=== PATIENT | male | born 1975 | race Caucasian/White ===

== ENCOUNTER 2023-10-26 00:58 | Day surgery (SDC) | payer BC, SELFPAY ==
[2023-10-13 09:31] VITALS: BMI 37.8
[2023-10-26 07:38] VITALS: BP 150/100; PULSE 70; RESP 18; TEMP 36.4; O2SAT 99; BMI 37.8
[2023-10-26] MEDS: LACTATED RINGERS 1,000 ML 150 ML IV CONT (07:55)
--- NOTE | 2023-10-26 09:17 | WPDANESEPPF ---
Anes - Initial Pre Proc Eval Procedure: Operation Date: 10/26/23 09:00 Proposed Procedures p Screening Colonoscopy - Jordan Maldonado DO Date/Time: 10/26/23 09:17 Surgeon: Jordan Maldonado DO Pre Op Diagnosis: Screening for malignant neoplasm of colon Patient Data Age: 48 Gender: M Height: 1.75 m Weight: 116.2 kg Last Vital Signs Temp 97.6 F 10/26/23 07:38 Pulse 70 10/26/23 07:38 Resp 18 10/26/23 07:38 BP 150/100 H 10/26/23 07:38 Pulse Ox 99 10/26/23 07:38 O2 Del Method Room Air 10/26/23 07:38 Allergies Allergy/AdvReac Type Severity Reaction Status Date / Time vancomycin Allergy Unknown Unknown Verified 10/26/23 07:46 Home Medications Medication Instructions Recorded Confirmed Type cholecalciferol (vitamin D3) 50 50 mcg PO DAILY 09/27/23 10/26/23 History mcg (2,000 unit) capsule cyanocobalamin (vitamin B-12) 1,000 mcg PO DAILY 09/27/23 10/26/23 History 1,000 mcg capsule magnesium gluconate 27.5 mg 27.5 mg PO EVERY OTHER DAY 09/27/23 10/26/23 History magnesium (500 mg) tablet Patient hx anesthesia problems: none Family hx anesthesia problems: none Results Review: All pre-operative results and documents have been reviewed as part of the pre-operative evaluation. PMFSH Past Medical History Medical History (Updated 09/27/23 @ 10:38 by Yolanda Lemus PA-C) Anxiety disorder, unspecified Essential (primary) hypertension Fracture of left tibia Low back pain Lumbar disc disease Sleep apnea Thyroid mass Vitamin D deficiency, unspecified Surgical History Surgical History (Updated 09/27/23 @ 10:42 by Yolanda Lemus PA-C) H/O vasectomy History of back surgery L2 microdiscectomy Family History Family History Father Hypertension Acute myocardial infarction Acute alcohol abuse Grandparent Family history of lung cancer Daughter Depression Son Depression Social History Social History (Updated 09/27/23 @ 10:50 by Niharika Lagos MA) Smoking status: Never smoker Second hand tobacco smoke exposure: Yes Alcohol intake: current Drinks per week: 20 Substance use: never Substance use type: does not use Do You Feel Safe in your Home?: Yes Lack of Transportation: No Lack of Food: Never True Current Housing: I Have Housing Concerned About Future Housing: No Difficulty Paying Gas/Electric Bills: No Difficulty Paying for Meds: No Currently Unemployed: No Education: Trade/Vocational Certificate Difficulty w/ Childcare or Family Care: No Living arrangements: with family Gender identity (if verbalized by the patient): Male Spiritual care concerns: No Agree to blood products: Yes Anes - Eval Final PreProcedure Day of Procedure 10/26/23 09:17 Patient weight: obese Heart: regular rate and rhythm Lungs: clear to auscultation Airway: Mallampati scale class III Neurological: alert and oriented Last oral intake: >/= 8 hours ASA classification: III Emergent: no Anesthetic plan: proceed Anesthesia type and monitoring: general GIVS and standard monitoring Results Review: All pre-operative results and documents have been reviewed as part of the pre-operative evaluation. Informed Consent: The patient's anesthetic plan and its attendant risks and benefits were discussed with the patient/family/POA. Questions were solicited and answers provided to the satisfaction of the patient/family/POA.
--- NOTE | 2023-10-26 09:22 | PM.IMHP ---
H&P: HPI History of Present Illness Date/Time: 10/26/23 09:22 Chief Complaint: Screening for colorectal cancer Narrative: This is a 48-year-old man who presents for his 1st colonoscopy. Denies any hematochezia or melena. He denies any family history cancer. Review of Systems Review of Systems: All systems reviewed & are unremarkable except as noted in HPI and below Constitutional: Constitutional: Denies chills, Denies fever(s), Denies headache(s) and Denies weight loss Eyes: Eyes: Denies change in vision ENT: Denies dizziness, Denies headache(s), Denies neck mass and Denies throat swelling Cardiovascular: Cardiovascular: Denies chest pain, Denies lightheadedness and Denies dyspnea Respiratory: Respiratory: Denies cough, Denies dyspnea and Denies wheezing Gastrointestinal: Gastrointestinal: Denies abdominal pain, Denies change in bowel habits, Denies nausea and Denies vomiting Genitourinary: Genitourinary: Denies hematuria and Denies dysuria Musculoskeletal: Musculoskeletal: Reports as per HPI Integumentary/Breasts: Skin/Breast: Reports as per HPI Neurologic: Denies dizziness and Denies headache(s) Allergic/Immunologic: Allergic/Immunologic: Denies throat swelling and Denies wheezing PMFSH Past Medical History Medical History (Updated 09/27/23 @ 10:38 by Yolanda Lemus PA-C) Anxiety disorder, unspecified Essential (primary) hypertension Fracture of left tibia Low back pain Lumbar disc disease Sleep apnea Thyroid mass Vitamin D deficiency, unspecified Surgical History Surgical History (Updated 09/27/23 @ 10:42 by Yolanda Lemus PA-C) H/O vasectomy History of back surgery L2 microdiscectomy Family History Family History Father Hypertension Acute myocardial infarction Acute alcohol abuse Grandparent Family history of lung cancer Daughter Depression Son Depression Social History Social History (Updated 09/27/23 @ 10:50 by Niharika Lagos MA) Smoking status: Never smoker Second hand tobacco smoke exposure: Yes Alcohol intake: current Drinks per week: 20 Substance use: never Substance use type: does not use Do You Feel Safe in your Home?: Yes Lack of Transportation: No Lack of Food: Never True Current Housing: I Have Housing Concerned About Future Housing: No Difficulty Paying Gas/Electric Bills: No Difficulty Paying for Meds: No Currently Unemployed: No Education: Trade/Vocational Certificate Difficulty w/ Childcare or Family Care: No Living arrangements: with family Gender identity (if verbalized by the patient): Male Spiritual care concerns: No Agree to blood products: Yes Meds Home Medications and Allergies Home Medications Medication Instructions Recorded Confirmed Type cholecalciferol (vitamin D3) 50 50 mcg PO DAILY 09/27/23 10/26/23 History mcg (2,000 unit) capsule cyanocobalamin (vitamin B-12) 1,000 mcg PO DAILY 09/27/23 10/26/23 History 1,000 mcg capsule magnesium gluconate 27.5 mg 27.5 mg PO EVERY OTHER DAY 09/27/23 10/26/23 History magnesium (500 mg) tablet Allergies Allergy/AdvReac Type Severity Reaction Status Date / Time vancomycin Allergy Unknown Unknown Verified 10/26/23 07:46 Vital Signs Vital Signs - 24 hr 10/26/23 07:38 Temperature 36.4 C Pulse Rate 70 Respiratory Rate 18 Blood Pressure 150/100 H Pulse Oximetry 99 Oxygen Delivery Room Air Exam Const: General: no acute distress and alert Orientation/consciousness: patient oriented x3 HENMT: Head: normocephalic and atraumatic Ears: hearing grossly normal bilaterally Face/Nose/Sinus: Normal nares present Mouth: Yes Normal oral and palatal mucosa present Eyes: Periorbital: periorbital findings normal Sclera: sclerae normal EOM: EOMs intact bilaterally Neck: Neck: normal visual inspection, no lymphadenopathy and trachea midline Chest: Chest palpation
[2023-10-26 10:00] VITALS: BP 106/62; PULSE 85; RESP 18; O2SAT 98
[2023-10-26 10:10] VITALS: BP 113/56; PULSE 76; RESP 17; O2SAT 95
[2023-10-26 10:20] VITALS: BP 116/74; PULSE 69; RESP 14; O2SAT 99
== END 2023-10-26 10:20 | disposition home or self-care (01) ==
PROVIDERS: PCP Family Medicine; Visit Provider Surgery
PROC: 0DJD8ZZ Inspection of Lower Intestinal Tract, Via Natural or Artificial Opening Endoscopic (ICD-10-PCS; CPT 45378; principal; 2023-10-26 09:00)
DX: Z12.11 Encounter for screening for malignant neoplasm of colon (principal); E55.9 Vitamin D deficiency, unspecified; G47.30 Sleep apnea, unspecified; E66.9 Obesity, unspecified; Z68.37 Body mass index [BMI] 37.0-37.9, adult
CPT/HCPCS: 45378; J2001; J2704; J7120